=== PATIENT | female | born 1955 | race Caucasian/White ===

== ENCOUNTER 2019-10-19 11:22 | Emergency (ER) | payer OTHER ==
[~2019-10-19] VITALS: Ht 165.1 cm; Wt 73.9 kg
[2019-10-19] MEDS ORDERED: TOPROL XL25 M1 PO (11:56)
[2019-10-19] MEDS ORDERED: ATACAND32 MG PO (11:56)
[2019-10-19] MEDS ORDERED: ONGLYZA5 MG PO (11:57)
[2019-10-19] MEDS ORDERED: DIAZEPAM10 MG PO (15:18)
== END 2019-10-19 15:58 | disposition home or self-care (01) ==
LOC: ER 11:22
DX: M54.41 Lumbago with sciatica, right side (principal)

== ENCOUNTER 2019-12-24 14:57 | Emergency (ER) | payer OTHER ==
[~2019-12-24] VITALS: Ht 165.1 cm; Wt 70.3 kg
[~2019-12-24 14:57] MED LIST: ATACAND32 MG PO; DIAZEPAM10 MG PO; ONGLYZA5 MG PO; TOPROL XL25 M1 PO
[2019-12-24] MEDS ORDERED: VALSARTAN-HCTZ1 EAC3 (15:50)
[2019-12-24] MEDS ORDERED: JANUMET 50-5001 EACH (15:50)
[2019-12-24] MEDS ORDERED: ATORVASTATIN CA10 MG (15:50)
[2019-12-24] MEDS ORDERED: NASAL MIST126 ML (15:50)
[2019-12-24] MEDS ORDERED: METFORMIN HCL500 M3 (15:52)
== END 2019-12-24 18:13 | disposition home or self-care (01) ==
LOC: ER 14:57
DX: E11.65 Type 2 diabetes mellitus with hyperglycemia (principal)

== ENCOUNTER 2021-04-09 16:46 | Emergency (ER) | payer OTHER ==
[~2021-04-09] VITALS: Ht 165.1 cm; Wt 79.4 kg
[~2021-04-09 16:46] MED LIST changes: +ATORVASTATIN CA10 MG; +JANUMET 50-5001 EACH; +METFORMIN HCL500 M3; +NASAL MIST126 ML; +VALSARTAN-HCTZ1 EAC3
[2021-04-09] MEDS ORDERED: SYNJARDY 12.5-1 EACH (16:58)
[2021-04-09] MEDS ORDERED: HUMALOG100 UNIT/1 (16:58)
[2021-04-09] MEDS ORDERED: LANTUS SOL100 UNIT/1 (16:58)
[2021-04-09] MEDS ORDERED: PEPCID20 MG PO (20:51)
[2021-04-09] MEDS ORDERED: NORFLEX100MG PO (20:51)
[2021-04-09] MEDS ORDERED: ACETAMINOPHEN650 M2 PO (20:51)
[2021-04-09] MEDS ORDERED: CARAFATE1 GM PO (20:51)
== END 2021-04-09 21:15 | disposition home or self-care (01) ==
LOC: ER 16:46
DX: M94.0 Chondrocostal junction syndrome [Tietze] (principal); K29.70 Gastritis, unspecified, without bleeding; R10.12 Left upper quadrant pain; R10.32 Left lower quadrant pain